=== PATIENT | female | born 1990 | race American Indian/Alaskan Native ===

== ENCOUNTER 2016-09-06 22:55 | Emergency (ER) | payer MEDICAID ==
[2016-09-07 00:04] LABS: Hematocrit TNR % (30.3-42.9); Hemoglobin TNR gm/dl (10.1-14.3); Mean Corpuscular HGB Conc TNR % (30-34); Mean Corpuscular Hemoglobin TNR pg (28-32); Mean Corpuscular Volume TNR fl (79-97); Mean Platelet Volume TNR fl (6-12); Platelet Count TNR K/mm3 (140-440); Red Blood Count TNR M/mm3 (3.65-5.03); Red Cell Distribution Width TNR % (13.2-15.2); White Blood Count TNR K/mm3 (4.5-11.0)
[2016-09-07 00:05] LABS: Basophils % (Auto) TNR % (0.0-1.8); Diff Status TNR; Eosinophils % (Auto) TNR % (0.0-4.3)
[2016-09-07 00:50] LABS: Basophils % (Auto) 0.5 % (0.0-1.8); Eosinophils % (Auto) 1.7 % (0.0-4.3); Hematocrit 39.6 % (30.3-42.9); Hemoglobin 12.9 gm/dl (10.1-14.3); Mean Corpuscular HGB Conc 33 % (30-34); Mean Corpuscular Hemoglobin 29 pg (28-32); Mean Corpuscular Volume 87 fl (79-97); Platelet Count 208 K/mm3 (140-440); Red Blood Count 4.53 M/mm3 (3.65-5.03); Red Cell Distribution Width 13.3 % (13.2-15.2); White Blood Count 7.9 K/mm3 (4.5-11.0)
[2016-09-07 01:28] LABS: Bilirubin,Urine NEG (Negative); Blood,Urine MOD (Negative); Ketones,Urine NEG (Negative); Leukocyte Esterase,Urine NEG (Negative); Nitrite,Urine NEG (Negative); Protein,Urine <15 mg/dL mg/dL (Negative); RBC,Urine < 1.0 /HPF (0.0-6.0); Urobilinogen,Urine < 2.0 mg/dL (<2.0); WBC,Urine < 1.0 /HPF (0.0-6.0)
[2016-09-07 03:18] VITALS: BP 142/69
--- NOTE | 2016-09-07 03:18 | Emergency Department Report ---
HPI - General Chief Complaint: Urogenital-Female Time Seen by Provider: 09/07/16 03:07 - HPI HPI: This is a 26-year-old Afro-[place] female who presents to the emergency department with some mild abdominal/pelvic cramping and some vaginal bleeding/ spotting and concern for possible versus miscarriage. Patient says that her last menstrual cycle was August 23. About 1 week ago patient had some light spotting/vaginal bleeding. She had done some research and thought that this could be some form of implantation bleeding so she took some home urine tests and a few of them came back positive at that time. However last night patient says that she started having some bright red bleeding vaginally. It has occurred intermittently throughout the day today. She has a previous with twin gestations that were delivered via C- section. She does not have any [facility] TECHNICIAN. Past medical history of asthma. ED Past Medical Hx - Past Medical History Previous Medical History?: Yes Hx Asthma: Yes - Surgical History Past Surgical History?: Yes Additional Surgical History: c-sec 2009 - Social History Smoking Status: Current Every Day Smoker Substance Use Type: None - Medications Home Medications: Home Medications Medication Instructions Recorded Confirmed Last Taken Type Gentamicin 0.3% Ophth Soln 2 drops OP Q4H 5 Days 05/20/14 Unknown Rx ED Review of Systems ROS: Stated complaint: VAG BLEED Other details as noted in HPI Comment: All other systems reviewed and negative Constitutional: denies: chills, fever Eyes: denies: eye pain, eye discharge, vision change ENT: denies: ear pain, throat pain Respiratory: denies: cough, shortness of breath, wheezing Cardiovascular: denies: chest pain, palpitations Gastrointestinal: abdominal pain (cramping). denies: nausea, vomiting Genitourinary: other (vaginal bleeding). denies: urgency, dysuria, discharge Musculoskeletal: denies: joint swelling, arthralgia Skin: denies: rash, lesions Neurological: denies: headache, weakness, paresthesias Physical Exam - Physical Exam Vital Signs: Vital Signs 09/06/16 22:59 Temperature 98.7 F Pulse Rate 82 Respiratory 16 Rate Blood Pressure 146/96 O2 Sat by Pulse 100 Oximetry Physical Exam: GENERAL: The patient is well-developed well-nourished. HEENT: Normocephalic. Atraumatic. Extraocular motions are intact. Patient has moist mucous membranes. Pupils equal reactive to light bilaterally. NECK: Supple. Trachea is midline. CHEST/LUNGS: Clear to auscultation. There is no respiratory distress noted. HEART/CARDIOVASCULAR: Regular. There is no tachycardia. There is no gallop rub or murmur. ABDOMEN: Abdomen is soft, nontender. No guarding or rebound tenderness. Patient has normal bowel sounds. There is no abdominal distention. SKIN: Warm and dry. NEURO: The patient is awake, alert, and oriented. The patient is cooperative. The patient has no focal neurologic deficits. The patient has normal speech. MUSCULOSKELETAL: There is no tenderness or deformity. There is no limitation range of motion. There is no evidence of acute injury. Radial pulses +2 over 4 bilaterally. ED Course Vital Signs 09/06/16 22:59 Temperature 98.7 F Pulse Rate 82 Respiratory 16 Rate Blood Pressure 146/96 O2 Sat by Pulse 100 Oximetry ED Medical Decision Making - Lab Data Result diagrams: 09/07/16 00:24 - Medical Decision Making 26 year old female presents to the emergency department with some vaginal bleeding after having multiple home test positive last week. Patient has mild cramping and some intermittent bright red vaginal bleeding. Her vital signs are stable throughout her ED course including being afebrile. Patient's labs show no leukocytosis, no significant anemia but most importantly the patient has a beta hCG that is 0 or less than 2. This shows that the patient is not and if the patient was last week and she may have had a miscarriage shortly afterwards. The patient does not appear to require any imaging at this time. She'll be discharged home to follow-up with an [facility] TECHNICIAN but has been encouraged to return to the emergency department with any worsening of her bleeding or any acute distress. - Differential Diagnosis , threatened , miscarriage, fibroids, UTI Critical Care Time: No Critical care attestation.: If time is entered above; I have spent that time in minutes in the direct care of this critically ill patient, excluding procedure time. ED Disposition Clinical Impression: Dysfunctional uterine bleeding, Abdominal cramping, Negative test Disposition: DISCHARGED TO HOME OR SELFCARE Is pt being admited?: No Condition: Stable Instructions: Dysfunctional Uterine Bleeding (ED) Additional Instructions: Please follow-up with an [facility] TECHNICIAN in the next few days. Return to the emergency department with any worsening of your symptoms or any acute distress. Referrals: PRIMARY CARE, [Primary Care Provider] - 3-5 Days MIA DAWN MD [Staff Physician] - 3-5 Days BRANDON SALAZAR MD [Staff Physician] - 3-5 Days Time of Disposition: 03:19
== END 2016-09-07 03:38 | disposition home or self-care (01) ==
LOC: ED 22:55
DX: N93.8 Other specified abnormal uterine and vaginal bleeding (principal); J45.909 Unspecified asthma, uncomplicated; F17.200 Nicotine dependence, unspecified, uncomplicated; Z32.02 Encounter for pregnancy test, result negative
CPT/HCPCS: 36415; 81001; 81025; 84702; 85025; 99283